=== PATIENT | male | born 1950 | race Caucasian/White ===

== ENCOUNTER → 2016-12-21 | Outpatient (CLI) | payer MEDICARE, OTHER ==
[~2016-12-21] MED LIST: ALLO100T PO; AMLO5TAB2 PO; ASPI-611 PO; BUME2TAB18 PO; CALC1TAB16 PO; CALC667T5 PO; CARV25TA28 PO; CLON0.2T73 PO; CLOP75TA33 PO; FENO145T18 PO; INSU100I3 SQ; INSU100V28 SQ; ISOS30TA46 PO; NITR0.4T SL; SENN-29 PO; SIMV20TA6 PO; [UNRECOGNIZED DRUG - CODE] PO
--- NOTE | 2016-12-21 08:51 | DI ---
Indication: ITS.REASON: I70.211; I70.212 Atherosclerosis of [place] arteries [facility] PROCEDURE: US ARTERIAL EXTREMITY LOWER BI: Technique: Grayscale color and duplex Doppler imaging was performed of the arterial tree of both legs. Findings: RIGHT LEG (cm/sec) Common Femoral 131 Superficial Femoral Proximal 94 Mid 97 Distal 151 Popliteal 87 FRENCH-prox 101 [employer]IL [employer]ER-prox 59 FRENCH-dist 63 CIVIL [employer]URAL DESIGNER-dist 29 LEFT LEG (cm/sec) Common Femoral 156 Superficial Femoral Proximal 101 Mid 166 Distal 91 Popliteal 108 FRENCH-prox 72 [employer]IVIL [employer] DESIGNER-prox 47 FRENCH-dist 52 CIVIL [employer]URAL DESIGNER-dist 18 Triphasic waveforms through the popliteal on the right with monophasic waveforms seen in the popliteal and distally. No focal velocity elevation or occlusion however. Dampened waveforms in the left calf arteries without focal occlusion. IMPRESSION: Moderate stenosis in the region of the popliteal bilaterally. No occlusion. .
== END ==
LOC: IMA 07:17
PROVIDERS: ATTEND Specialist
DX: I70.213 Atherosclerosis of native arteries of extremities with intermittent claudication, bilateral legs (principal)